=== PATIENT | male | born 1955 | race African-American/Black ===

== ENCOUNTER 2017-01-18 17:20 | Inpatient (IN) | payer SELFPAY ==
[~2017-01-18] VITALS: Ht 185.4 cm; Wt 118.5 kg
[2017-01-18 17:53] LABS: WHITE BLOOD COUNT ND K/uL (4.1-10.2)
[2017-01-18 17:54] LABS: HEMATOCRIT ND % (38.0-50.0); MCH ND PG (29.0-34.0); MCHC ND G/DL (30.0-36.0); MCV ND FL (86-99); MEAN PLAT.VOLUME ND uM^3 (9.0-12.4); NRBC (%) ND /100 WBC (0-0); PLATELET COUNT ND K/uL (156-360); RBC DIS.WIDTH-CV ND % (11.8-14.6); RBC DIS.WIDTH-SD ND % (39-53); RED BLOOD COUNT ND M/uL (4.00-5.50)
[2017-01-18 18:11] LABS: TROP-I INTERPRETATION NEGATIVE; TROPONIN-I 0.02 ng/mL (0.0-0.30)
[2017-01-18 18:26] LABS: MCH 28.8 PG (29.0-34.0); MCHC 34.4 G/DL (30.0-36.0); MCV 83.7 FL (86-99); MEAN PLAT.VOLUME 11.5 uM^3 (9.0-12.4); PLATELET COUNT 171 K/uL (156-360); RBC DIS.WIDTH-SD 39.3 % (39-53); RED BLOOD COUNT 4.66 M/uL (4.00-5.50); WHITE BLOOD COUNT 4.9 K/uL (4.1-10.2)
[2017-01-18 18:36] LABS: CHLORIDE 97 mEq/L (99-109); SODIUM 147 mEq/L (136-147)
[2017-01-18 18:37] LABS: GLUCOSE 128 mg/dL (70-99)
[2017-01-18 18:39] LABS: ANION GAP 19 MEQ/L (2-14)
[2017-01-18 18:42] LABS: UREA NITROGEN (BUN) 12 mg/dL (9-23)
[2017-01-18 18:43] LABS: GFR ESTIMATE (CALCULATED) > 59 mL/min/; POTASSIUM 2.2 mEq/L (3.7-5.4)
[2017-01-18 19:53] LABS: MAGNESIUM 1.1 mg/dL (1.3-2.7)
[2017-01-18 20:35] LABS: INTER. NORMALIZED RATIO 1.2; PROTHROMBIN TIME 13.4 SEC (10.2-12.9)
[2017-01-18 21:56] LABS: TOTAL BILIRUBIN 0.8 mg/dL (0.0-1.0)
[2017-01-18 21:57] LABS: ALKALINE PHOSPHATASE 89 IU/L (3-129)
[2017-01-18 21:59] LABS: DIRECT BILIRUBIN 0.3 mg/dL (0.0-0.3)
[2017-01-18 22:16] VITALS: BP 167/91
[2017-01-19 01:14] LABS: TROP-I INTERPRETATION NEGATIVE; TROPONIN-I 0.03 ng/mL (0.0-0.30)
[2017-01-19 06:06] LABS: HEMATOCRIT 34.5 % (38.0-50.0); MCH 28.9 PG (29.0-34.0); MCHC 34.5 G/DL (30.0-36.0); MCV 83.7 FL (86-99); RBC DIS.WIDTH-CV 13.2 % (11.8-14.6); RBC DIS.WIDTH-SD 40.2 % (39-53); RED BLOOD COUNT 4.12 M/uL (4.00-5.50)
[2017-01-19 06:33] LABS: ALKALINE PHOSPHATASE 70 IU/L (3-129); ANION GAP 9 MEQ/L (2-14); CHLORIDE 99 MEQ/L (99-109); GFR ESTIMATE (CALCULATED) > 59 mL/min/; GLUCOSE 120 mg/dL (70-99); MAGNESIUM 1.4 mg/dl (1.3-2.7); POTASSIUM 2.5 MEQ/L (3.7-5.4); SAMPLE HEMOLYSIS CHECK 0; SAMPLE ICTERIC CHECK 0; SAMPLE LIPEMIA CHECK 0; SODIUM 141 MEQ/L (136-147); TOTAL BILIRUBIN 0.8 MG/DL (0.0-1.0); UREA NITROGEN (BUN) 13 mg/dL (9-23)
[2017-01-19 06:35] LABS: TROP-I INTERPRETATION NEGATIVE; TROPONIN-I 0.04 ng/mL (0.0-0.30)
[2017-01-19 06:40] LABS: MEAN PLAT.VOLUME 11.5 uM^3 (9.0-12.4); PLAT.SUFFICIENCY ADEQUATE; PLATELET COUNT 157 K/uL (156-360)
[2017-01-19 07:42] VITALS: BP 156/88
[2017-01-19] MEDS ORDERED: ZESTRIL40 MG PO (12:03)
[2017-01-19] MEDS ORDERED: AMLODIPINE BESY10 MG PO (12:04)
[2017-01-19 14:44] LABS: ANION GAP 9 MEQ/L (2-14); CHLORIDE 97 MEQ/L (99-109); POTASSIUM 2.5 MEQ/L (3.7-5.4); SAMPLE HEMOLYSIS CHECK 0; SAMPLE ICTERIC CHECK 0; SAMPLE LIPEMIA CHECK 0; SODIUM 140 MEQ/L (136-147)
[2017-01-19 14:49] LABS: GFR ESTIMATE (CALCULATED) > 59 mL/min/; GLUCOSE 165 mg/dL (70-99); UREA NITROGEN (BUN) 11 mg/dL (9-23)
[2017-01-19 15:44] VITALS: BP 168/99
[2017-01-19 22:35] LABS: ADD MIUA? YES; BILIRUBIN NEGATIVE; BLOOD NEGATIVE; COLOR YELLOW ((YELLOW)); GLUCOSE (STRIP) 150; KETONES NEGATIVE; LEUKOCYTES NEGATIVE; NITRITE NEGATIVE; PROTEIN (STRIP) NEGATIVE; SPECIFIC GRAVITY 1.013 (1.000-1.030)
[2017-01-19 22:53] LABS: AMPHETAMINES QUANT VALUE 0 NG/ML; BARBITUATES QUANT VALUE 0 NG/ML; BENZODIAZEPINES, URINE SCREEN POSITIVE (200 ng/mL); MARIJUANA QUANT VALUE 0 NG/ML; OPIATES QUANTITATIVE VALUE 0 NG/ML; PHENCYCLIDINE QUANT VALUE 0 NG/ML
[2017-01-19 23:09] LABS: EPITHELIAL CELLS RARE /HPF; RED BLOOD CELLS 0-5 /HPF (0-5); WHITE BLOOD CELLS 0-5 /HPF (0-5)
[2017-01-19 23:10] VITALS: BP 146/88
[2017-01-19 23:10] LABS: AMORPHOUS URATES CRYSTALS 3+; BACTERIA RARE /HPF; UCUL ADDED? NO
[2017-01-19 23:11] LABS: MUCUS TRACE /LPF
[2017-01-20 04:50] VITALS: BP 160/87
[2017-01-20 06:41] LABS: ANION GAP 11 MEQ/L (2-14); CHLORIDE 100 MEQ/L (99-109); GFR ESTIMATE (CALCULATED) > 59 mL/min/; POTASSIUM 2.8 MEQ/L (3.7-5.4); SAMPLE HEMOLYSIS CHECK 0; SAMPLE ICTERIC CHECK 0; SAMPLE LIPEMIA CHECK 0; SODIUM 144 MEQ/L (136-147); UREA NITROGEN (BUN) 14 mg/dL (9-23)
[2017-01-20 06:42] LABS: GLUCOSE 112 mg/dL (70-99)
[2017-01-20 07:02] LABS: MAGNESIUM 1.5 mg/dl (1.3-2.7)
[2017-01-20 07:31] VITALS: BP 149/91
[2017-01-20 11:44] VITALS: BP 154/97
[2017-01-20 15:24] VITALS: BP 147/86
[2017-01-20 20:48] VITALS: BP 135/86
[2017-01-20 23:47] VITALS: BP 154/90
[2017-01-21 05:55] LABS: EOSINOPHIL (%) 3.4 % (0-5); EOSINOPHIL COUNT 0.2 K/uL (0-0.3); HEMATOCRIT 40.1 % (38.0-50.0); IMMATURE GRANULOCYTE (%) 0.2 % (0.0-0.7); INSTRUMENT ABS NEUTROPHIL CT 1.9 K/uL; LYMPHOCYTE COUNT 2.1 K/uL (1.0-2.8); MCHC 33.7 G/DL (30.0-36.0); MCV 83.2 FL (86-99); MEAN PLAT.VOLUME 11.3 uM^3 (9.0-12.4); MONOCYTE (%) 5.9 % (3-12); MONOCYTE COUNT 0.3 K/uL (0-0.8); NEUTROPHIL (%) 41.9 % (45-76); NEUTROPHIL COUNT 1.9 K/uL (1.8-6.4); PLATELET COUNT 175 K/uL (156-360); RBC DIS.WIDTH-CV 12.8 % (11.8-14.6); RBC DIS.WIDTH-SD 38.7 % (39-53); RED BLOOD COUNT 4.82 M/uL (4.00-5.50); WHITE BLOOD COUNT 4.4 K/uL (4.1-10.2)
[2017-01-21 06:26] LABS: ANION GAP 9 MEQ/L (2-14); CHLORIDE 102 MEQ/L (99-109); GFR ESTIMATE (CALCULATED) > 59 mL/min/; GLUCOSE 126 mg/dL (70-99); POTASSIUM 2.9 MEQ/L (3.7-5.4); SAMPLE HEMOLYSIS CHECK 0; SAMPLE ICTERIC CHECK 0; SAMPLE LIPEMIA CHECK 0; SODIUM 141 MEQ/L (136-147); UREA NITROGEN (BUN) 14 mg/dL (9-23)
[2017-01-21 08:03] VITALS: BP 122/71
[2017-01-21 09:02] LABS: MAGNESIUM 1.5 mg/dl (1.3-2.7)
[2017-01-21 11:52] VITALS: BP 179/99
[2017-01-21 14:52] LABS: ANION GAP 9 MEQ/L (2-14); CHLORIDE 101 MEQ/L (99-109); GFR ESTIMATE (CALCULATED) > 59 mL/min/; GLUCOSE 165 mg/dL (70-99); POTASSIUM 3.1 MEQ/L (3.7-5.4); SAMPLE HEMOLYSIS CHECK 0; SAMPLE ICTERIC CHECK 0; SAMPLE LIPEMIA CHECK 0; SODIUM 139 MEQ/L (136-147); UREA NITROGEN (BUN) 12 mg/dL (9-23)
[2017-01-21 15:03] VITALS: BP 159/96
[2017-01-21 20:11] VITALS: BP 163/94
[2017-01-21 23:05] VITALS: BP 154/85
[2017-01-22 04:15] VITALS: BP 148/88
[2017-01-22 06:44] LABS: EOSINOPHIL (%) 2.6 % (0-5); EOSINOPHIL COUNT 0.1 K/uL (0-0.3); HEMATOCRIT 39.3 % (38.0-50.0); IMMATURE GRANULOCYTE (%) 0.2 % (0.0-0.7); INSTRUMENT ABS NEUTROPHIL CT 2.1 K/uL; LYMPHOCYTE COUNT 2.1 K/uL (1.0-2.8); MCH 29.3 PG (29.0-34.0); MCHC 34.9 G/DL (30.0-36.0); MEAN PLAT.VOLUME 11.3 uM^3 (9.0-12.4); MONOCYTE (%) 5.9 % (3-12); MONOCYTE COUNT 0.3 K/uL (0-0.8); NEUTROPHIL (%) 45.7 % (45-76); NEUTROPHIL COUNT 2.1 K/uL (1.8-6.4); PLATELET COUNT 177 K/uL (156-360); RBC DIS.WIDTH-CV 13.1 % (11.8-14.6); RBC DIS.WIDTH-SD 39.5 % (39-53); RED BLOOD COUNT 4.68 M/uL (4.00-5.50); WHITE BLOOD COUNT 4.5 K/uL (4.1-10.2)
[2017-01-22 07:12] LABS: ANION GAP 9 MEQ/L (2-14); CHLORIDE 103 MEQ/L (99-109); GFR ESTIMATE (CALCULATED) > 59 mL/min/; GLUCOSE 119 mg/dL (70-99); POTASSIUM 3.3 MEQ/L (3.7-5.4); SAMPLE HEMOLYSIS CHECK 0; SAMPLE ICTERIC CHECK 0; SAMPLE LIPEMIA CHECK 0; SODIUM 141 MEQ/L (136-147); UREA NITROGEN (BUN) 11 mg/dL (9-23)
[2017-01-22 08:01] VITALS: BP 136/93
[2017-01-22 11:50] VITALS: BP 160/88
[2017-01-22 16:00] VITALS: BP 148/89
[2017-01-22 19:45] VITALS: BP 144/89
[2017-01-22 23:59] VITALS: BP 154/90
[2017-01-23] VITALS (7 sets, daily range): BP systolic 138–156; BP diastolic 80–95
[2017-01-23 07:51] LABS: ANION GAP 6 MEQ/L (2-14); CHLORIDE 102 MEQ/L (99-109); GFR ESTIMATE (CALCULATED) > 59 mL/min/; GLUCOSE 115 mg/dL (70-99); POTASSIUM 3.3 MEQ/L (3.7-5.4); SAMPLE HEMOLYSIS CHECK 1; SAMPLE ICTERIC CHECK 0; SAMPLE LIPEMIA CHECK 0; SODIUM 139 MEQ/L (136-147); UREA NITROGEN (BUN) 13 mg/dL (9-23)
[2017-01-23 08:31] LABS: MAGNESIUM 1.5 mg/dl (1.3-2.7)
[2017-01-24 03:40] VITALS: BP 139/89
[2017-01-24 07:37] LABS: ANION GAP 7 MEQ/L (2-14); CHLORIDE 103 MEQ/L (99-109); GFR ESTIMATE (CALCULATED) > 59 mL/min/; GLUCOSE 120 mg/dL (70-99); MAGNESIUM 1.7 mg/dl (1.3-2.7); POTASSIUM 3.3 MEQ/L (3.7-5.4); SAMPLE HEMOLYSIS CHECK 0; SAMPLE ICTERIC CHECK 0; SAMPLE LIPEMIA CHECK 0; SODIUM 140 MEQ/L (136-147); UREA NITROGEN (BUN) 8 mg/dL (9-23)
[2017-01-24 08:23] VITALS: BP 130/75
[2017-01-24 11:26] VITALS: BP 145/75
[2017-01-24 13:49] LABS: ANION GAP 8 MEQ/L (2-14); CHLORIDE 104 MEQ/L (99-109); GFR ESTIMATE (CALCULATED) > 59 mL/min/; GLUCOSE 170 mg/dL (70-99); POTASSIUM 3.5 MEQ/L (3.7-5.4); SAMPLE HEMOLYSIS CHECK 0; SAMPLE ICTERIC CHECK 0; SAMPLE LIPEMIA CHECK 0; SODIUM 139 MEQ/L (136-147); UREA NITROGEN (BUN) 7 mg/dL (9-23)
[2017-01-24] MEDS ORDERED: LABETALOL HCL200 MG PO (14:37)
[2017-01-24] MEDS ORDERED: MAG-OXIDE400 MG PO (14:37)
[2017-01-24] MEDS ORDERED: ZESTRIL40 MG PO (14:37)
[2017-01-24] MEDS ORDERED: ASPIR-LOW81 MG PO (14:37)
[2017-01-24] MEDS ORDERED: SPIRONOLACTONE25 MG PO (14:37)
[2017-01-24] MEDS ORDERED: K-DUR20 MEQ PO (14:38)
== END 2017-01-24 15:41 | disposition home or self-care (01) | DRG 641 ==
LOC: EME 17:20 → EDOF 20:55 → 5SOUTH 20:55 → ENRESERV 20:57 → 5SOUTH 21:55
PROVIDERS: Emergency Medicine; Hospitalist; Internal Medicine Cardiovascular Disease; Internal Medicine Nephrology; Nurse Practitioner Adult Health
DX: E87.6 Hypokalemia (principal); F10.239 Alcohol dependence with withdrawal, unspecified; I47.1 Supraventricular tachycardia; E83.39 Other disorders of phosphorus metabolism; E83.42 Hypomagnesemia; G47.33 Obstructive sleep apnea (adult) (pediatric); I10 Essential (primary) hypertension; E78.5 Hyperlipidemia, unspecified; F17.210 Nicotine dependence, cigarettes, uncomplicated; E66.9 Obesity, unspecified; Z68.34 Body mass index [BMI] 34.0-34.9, adult; Z91.14 Patient's other noncompliance with medication regimen; Z91.19 Patient's noncompliance with other medical treatment and regimen; Z82.49 Family history of ischemic heart disease and other diseases of the circulatory system
CPT/HCPCS: 71010; 71275; 76770; 80048; 80048 91; 80053; 80076; 80306 90; 81003; 82088 90; 82436; 83735; 83930; 83935; 84100; 84133; 84244 90; 84295; 84300; 84443; 84484; 85025; 85027; 85610; 93005; 93306; 93975; 94799; 99281; 99285; C9113; J0696; J3411; J3475; J3480; J7030; J7040; J7050; J7120